=== PATIENT | male | born 1940 | race Caucasian/White ===

== ENCOUNTER → 2017-06-18 | Outpatient (CLI) | payer BC ==
[~2017-06-18] MED LIST: AMLO5TAB PO; ASPI-COR81 M1 PO; CELEBREX 200MG200 MG PO; COREG 12.5 MG12.5 MG PO; CRESTOR20 MG PO; GLUCOSAMINE & C1 CA1 PO; HYDROCODONE-APA1 TA1 PO; ISOSORBIDE MONO60 M1 PO; LISINOPRIL 20MG20 MG PO; TRIAMCINOLON 0.80 G2 TP; VIMOVO 20 MG-501 TCP PO
[2017-06-18 14:08] LABS: BUN 16 mg/dL (7-18)
[2017-06-18 14:13] LABS: GFR (ESTIMATED) 59 ML/MIN (>60)
[2017-06-18 14:20] LABS: HEMOGLOBIN 15.7 g/dL (14.1-18.0); LYMPH % 25.6 % (10-50)
[2017-06-19 08:46] LABS: Vitamin D, 25-Hydroxy 28.3 ng/mL (30.0-100.0)
== END ==
LOC: CARL-LAB 10:14
PROVIDERS: Internal Medicine Adolescent Medicine
DX: I25.10 Atherosclerotic heart disease of native coronary artery without angina pectoris (principal); R53.83 Other fatigue; R53.81 Other malaise; E55.9 Vitamin D deficiency, unspecified